=== PATIENT | female | born 1985 | race Caucasian/White ===

== ENCOUNTER 2022-02-09 06:07 | Emergency (ER) | payer OTHER, SELFPAY ==
[2022-02-09 06:08] VITALS: BP 153/93; PULSE 110; RESP 18; TEMP 36.6; O2SAT 100
--- NOTE | 2022-02-09 06:56 | ED_ITS ---
HPI - Dental/Oral General Chief complaint: Dental/Oral Stated complaint: dental, facial swelling Time Seen by Provider: 02/09/22 06:09 History of Present Illness HPI Narrative: 36-year-old female presented to the emergency department for evaluation of worsening dental pain. Patient has had follow-up with a dentist and had been treated with amoxicillin and then Augmentin. Related Data Allergies Allergy/AdvReac Type Severity Reaction Status Date / Time lurasidone [From Latuda] Allergy Seizure Verified 02/09/22 06:19 methocarbamol [From Robaxin] Allergy Seizure Verified 02/09/22 06:19 pseudoephedrine Allergy Seizure Verified 02/09/22 06:19 venlafaxine [From Effexor] Allergy Seizure Verified 02/09/22 06:19 Exam Narrative: APPEARANCE: Well appearing, no pain, no distress, well-nourished. HEAD: normocephalic, atraumatic. Mild left lower facial swelling, no tenderness to palpation EYES: PERRLA/EOMI, conjunctivae clear. NOSE: Normal no drainage EARS:TMS clear with good light reflex. THROAT: Pharynx clear, no exudate. Dental: Dental carry with no dental abscess amenable to drainage NECK: Supple. No adenopathy, no masses. RESPIRATORY: Airway patent, respirations nonlabored. Clear to auscultation bilaterally, no rales, rhonchi, wheezing. SKIN: Warm, dry. Normal Color PSYCHIATRIC: Normal affect/mood. Course Course Emergency Course: Patient was started on clindamycin. Patient was recommended to stop taking the Augmentin and switch to clindamycin. Patient will also have close follow-up with her dentist as scheduled. Vital Signs Vital signs: Vital Signs Temperature 97.8 F 02/09/22 06:08 Pulse Rate 110 H 02/09/22 06:08 Respiratory Rate 18 02/09/22 06:08 Blood Pressure 153/93 H 02/09/22 06:08 Pulse Oximetry 100 02/09/22 06:08 Oxygen Delivery Room Air 02/09/22 06:08 Temperature 97.8 F 02/09/22 06:08 Pulse Rate 110 H 02/09/22 06:08 Respiratory Rate 18 02/09/22 06:08 Blood Pressure 153/93 H 02/09/22 06:08 Pulse Oximetry 100 02/09/22 06:08 Oxygen Delivery Room Air 02/09/22 06:08 Discharge Plan Discharge Clinical Impression: Toothache Patient Disposition: Home, Self-Care Condition: Stable Instructions: Antibiotic Form, Toothache (ED) Additional Instructions: Stop taking the Augmentin and start taking the clindamycin. Prescriptions: New clindamycin HCl 150 mg capsule 150 mg PO Q6H 10 Days Qty: 40 0RF Follow-up/Referrals: PHYSICIAN,[employer]ATIONSH[employer] MANAGER [Primary Care Provider] -
--- NOTE | 2022-02-09 07:12 | PC.NURSE ---
Pt refused medication dose prior to discharge.
== END 2022-02-09 07:13 | disposition home or self-care (01) ==
PROVIDERS: Emergency Provider Emergency Medicine
DX: K08.89 Other specified disorders of teeth and supporting structures (principal); G40.909 Epilepsy, unspecified, not intractable, without status epilepticus
CPT/HCPCS: 99283

== ENCOUNTER 2022-02-21 11:51 | Emergency (ER) | payer OTHER, SELFPAY ==
--- NOTE | ~2022-02-21 | XR_ITS ---
EXAMINATION: XR shoulder LT min 2V DATE: 02/21/2022 12:55 INDICATION: Left shoulder injury. TECHNIQUE: 4 views of left shoulder were obtained. COMPARISON: None. FINDINGS: Bone alignment is normal. No fracture. Joint spaces are well maintained. IMPRESSION: 1. Normal left shoulder. Reviewed, dictated and finalized at location A. IMPRESSION: 1. Normal left shoulder.
--- NOTE | ~2022-02-21 | XR_ITS ---
EXAMINATION: XR hand LT min 3V DATE: 02/21/2022 12:56 INDICATION: Left hand pain. Injury. TECHNIQUE: 3 views of left hand were obtained. COMPARISON: None. FINDINGS: Bone alignment is normal. No fracture. Joint spaces are normal. IMPRESSION: 1. Normal left hand. Reviewed, dictated and finalized at location A. IMPRESSION: 1. Normal left hand.
[2022-02-21 11:52] VITALS: BP 142/86; PULSE 113; RESP 18; TEMP 36.4; O2SAT 100
[2022-02-21] MEDS: KETOROLAC (*BKC) 60 MG/2 ML VIAL IM (12:56)
--- NOTE | 2022-02-21 13:18 | ED.GENADULT ---
HPI - General Adult General Chief complaint: Extremity Injury, Upper Stated complaint: left hand pain Time Seen by Provider: 02/21/22 11:58 History of Present Illness HPI narrative: Patient is a 36-year-old female who presents to the ER with left shoulder pain and left hand pain. Hand pain is located at the fourth MCP where she has some slight swelling. Patient reports she was raising her kids or [place] when she tried to cut through a [place] and fell onto the left side. She did not initially have any real pain. After she worked at her job through the evening she developed increased pain in her shoulder and hand. She has difficulty lifting past 90 degrees at the shoulder with abduction and forward flexion. External/internal rotation are retained. She reports that she has a deep burning sensation over the left shoulder but no actual numbness or tingling. Improves with rest. Worse with movement. Did not strike her head or lose consciousness. Related Data Allergies Allergy/AdvReac Type Severity Reaction Status Date / Time lurasidone [From Latuda] Allergy Seizure Verified 02/09/22 06:19 methocarbamol [From Robaxin] Allergy Seizure Verified 02/09/22 06:19 pseudoephedrine Allergy Seizure Verified 02/09/22 06:19 venlafaxine [From Effexor] Allergy Seizure Verified 02/09/22 06:19 Review of Systems Constitutional: Constitutional: Denies chills and Denies fever(s) Musculoskeletal: Musculoskeletal: Denies back pain, Reports myalgias, Reports arthralgias, Reports joint swelling and Denies muscle cramps Neurologic: Denies syncope, Denies focal weakness and Denies numbness Comments: Burning paresthesia of the left lateral shoulder. PMFSH Past Medical History Medical History (Updated 02/21/22 @ 13:25 by Adam Rutledge MD) Seizure disorder Surgical History Surgical History (Updated 02/21/22 @ 13:21 by Adam Rutledge MD) H/O knee surgery History of appendectomy Social History Social History (Updated 02/21/22 @ 13:21 by Adam Rutledge MD) Smoking status: Never smoker Exam Narrative: GENERAL: Well-appearing, well-nourished, and in no acute distress. HEAD: Normocephalic, atraumatic. Neck: Supple, no paraspinal or midline tenderness of the C-spine. CHEST: Clear to auscultation. No respiratory distress. HEART: Regular rate and rhythm. Normal peripheral pulses. Back: No midline tenderness of the T/L-spine. Mild discomfort left trapezius region. No scapular tenderness. No abrasions or bruising noted to the back. EXTREMITIES: Focused exam left upper extremity reveals normal internal/external rotation of the shoulder with pain upon getting to 90 degrees abduction. No bruising or swelling to the shoulder. Left hand with normal range of motion and strength without point tenderness of the third or fourth fourth MCP. SKIN: Warm, dry, no rash. NEURO: Alert and oriented x3. PSYCH: Normal mood and affect. Course Course Emergency Course: Informed patient of results and will treat with anti-inflammatories and muscle relaxers. Patient verbalized understanding and requested a left shoulder sling. Discussed we will provide 1 but recommend she continue to practice range of motion exercises so she does not develop a frozen shoulder patient verbalized understanding. She has a private orthopedic surgeon she sees in [facility]. We will give her the name of our orthopedic surgery physician on-call but discussed that she is more than welcome to follow-up with her doctor. Vital Signs Vital signs: Vital Signs Temperature 97.6 F 02/21/22 11:52 Pulse Rate 113 H 02/21/22 11:52 Respiratory Rate 18 02/21/22 11:52 Blood Pressure 142/86 H 02/21/22 11:52 Pulse Oximetry 100 02/21/22 11:52 Oxygen Delivery Room Air 02/21/22 11:52 Temperature 97.6 F 02/21/22 11:52 Pulse Rate 113 H 02/21/22 11:52 Respiratory Rate 18 02/21/22 11:52 Blood Pressure 142/86 H 02/21/22 11:52 Pulse Oximetry 100
== END 2022-02-21 13:51 | disposition home or self-care (01) ==
PROVIDERS: Emergency Provider Emergency Medicine
DX: S43.402A Unspecified sprain of left shoulder joint, initial encounter (principal); S63.655A Sprain of metacarpophalangeal joint of left ring finger, initial encounter; G40.909 Epilepsy, unspecified, not intractable, without status epilepticus; W18.39XA Other fall on same level, initial encounter
CPT/HCPCS: 73030; 73130; 96372; 99284; A4565; J1885

== ENCOUNTER 2022-02-24 11:20 | Emergency (ER) | payer BC, MEDICAID, SELFPAY ==
[2022-02-24 11:28] VITALS: BP 140/99; PULSE 116; RESP 18; TEMP 36.7; O2SAT 97
--- NOTE | 2022-02-24 11:31 | ED.SKABFB ---
HPI - Skin/Abscess/Foreign Bdy General Chief complaint: Allergic Reaction Stated complaint: Rash Time Seen by Provider: 02/24/22 11:37 Source: patient and RN notes reviewed Mode of arrival: ambulatory Limitations: no limitations History of Present Illness HPI narrative: 36-year-old female presents to the [facility] with a rash to bilateral arms after falling into a [place] and in [place] on Sunday, 5 days ago. Has been using calamine. States that her throat is itchy. No swelling noted. Able to swallow with no drooling. No swelling of the lip tongue or throat noted. Related Data Home Medications Medication Instructions Recorded Confirmed bupropion HCl 300 mg 24 hr tablet, mg PO 02/24/22 extended release oxcarbazepine 300 mg tablet 300 mg PO BID 02/24/22 02/24/22 (Trileptal) Allergies Allergy/AdvReac Type Severity Reaction Status Date / Time lurasidone [From Latuda] Allergy Seizure Verified 02/09/22 06:19 methocarbamol [From Robaxin] Allergy Seizure Verified 02/09/22 06:19 pseudoephedrine Allergy Seizure Verified 02/09/22 06:19 venlafaxine [From Effexor] Allergy Seizure Verified 02/09/22 06:19 Review of Systems Review of Systems: All systems reviewed & are unremarkable except as noted in HPI and below Constitutional: Constitutional: Reports no additional constitutional complaints, Denies chills and Denies fever(s) Eyes: Eyes: Reports no additional eye complaints ENT: Reports system reviewed and no additional complaints, except as documented Cardiovascular: Cardiovascular: Reports no additional cardiovascular complaints Respiratory: Respiratory: Reports no additional respiratory complaints Gastrointestinal: Gastrointestinal: Reports no additional gastrointestinal complaints Musculoskeletal: Musculoskeletal: Reports no additional musculoskeletal complaints Integumentary/Breasts: Skin/Breast: Reports as per HPI and Reports rash Neurologic: Reports system reviewed and no additional complaints, except as documented Psychiatric: Psychiatric: Reports no additional psychiatric complaints Allergic/Immunologic: Allergic/Immunologic: Reports no additional allergic/immunologic complaints PMFSH Past Medical History Medical History Seizure disorder Surgical History Surgical History H/O knee surgery History of appendectomy Social History Social History Smoking status: Never smoker Comments At the time of my signature, I reviewed and agree with the nursing past medical, surgical, social, and family history. There is no relevant family history pertinent to the patient complaint. Exam Const: General: healthy appearing, no acute distress and alert Nutritional Appearance: well nourished Orientation/consciousness: patient oriented x3 Limitations: no limitations HENMT: Head: normal to inspection Ears: external ears normal General nose exam: Normal external nose present Mouth: Yes Normal oral and palatal mucosa present, Yes lip normal and Yes moist mucous membranes Throat: posterior oropharynx normal and uvula midline Eyes: General: appearance normal, both eyes and all related structures Pupils: Equal, round and reactive pupils present Neck: Neck: normal visual inspection, no lymphadenopathy and no meningeal signs Chest: Chest palpation & inspection: normal inspection of the chest Resp: Effort & Inspection: normal respiratory effort and no use of accessory muscles Auscultation: clear to auscultation bilaterally, no crackles, no rales, no rhonchi and no wheezes Cardio: Rate: regular rate Rhythm: regular rhythm Back/Spine/Pelvis: Cervical Spine: normal cervical lordosis Thoracic/Lumbar Spine: thoracic and lumbar spine normal to inspection Skin: General skin exam: normal color Wounds: no wounds Other: Bilateral rash to arms
[2022-02-24 11:32] VITALS: BP 140/99; PULSE 116; RESP 18; TEMP 36.7; O2SAT 97
== END 2022-02-24 11:59 | disposition home or self-care (01) ==
PROVIDERS: Emergency Provider Nurse Practitioner
DX: L25.5 Unspecified contact dermatitis due to plants, except food (principal); G40.909 Epilepsy, unspecified, not intractable, without status epilepticus
CPT/HCPCS: 99213; G0463

== ENCOUNTER 2022-04-12 13:30 | Emergency (ER) | payer OTHER, BC, MEDICAID, SELFPAY ==
--- NOTE | ~2022-04-12 | CT_ITS ---
EXAMINATION: CT abd pelvis lumbar w con DATE: 04/12/2022 14:41 INDICATION: Nausea, vomiting and back pain TECHNIQUE: Computed tomography (CT) of the abdomen, pelvis and lumbar spine was performed with 100 mL Omnipaque-350 intravenous contrast. The dose-length product was 974.63 mGy-cm. COMPARISON: None FINDINGS: Lung bases are clear. Heart size is normal. No pericardial or pleural effusion. Liver, gallbladder, s pleen, pancreas, bilateral adrenal glands and kidneys are normal. Bladder is normal. Bilateral Essure type fallopian tube occlusion devices in expected position along the left and right broad ligament. Uterus and bilateral adnexa are otherwise unremarkable. Appendix is not visualized and there are surg ical clips along the anterior margin of the right psoas muscle and suture line at the tip the cecum l ikely related to prior appendectomy. Colon is largely decompressed. No dilated bowel to suggest obstr uction. No abscess or free intraperitoneal gas or fluid. No pathologically enlarged abdominal or pelv ic lymphadenopathy. Small fat-containing umbilical hernia. Moderate disc height loss at L4-L5 with pr ominent Schmorl's nodes along the inferior endplate of L4. Associated disc bulge resulting in mild to moderate central canal stenosis and mild bilateral neural foraminal stenosis at L4-L5. Otherwise min imal lumbar and mild thoracic spondylosis. IMPRESSION: 1. No acute intra-abdominal/pelvic process. 2. Small fat-containing umbilical hernia. 3. Bilateral Essure type tubal ligation devices in expected positions. 4. Moderate spondylosis at L4-L5. Reviewed, dictated and finalized at location B.
[2022-04-12 13:31] VITALS: BP 187/117; PULSE 123; RESP 18; TEMP 36.5; O2SAT 98
[2022-04-12 13:45] LABS: Basophils Absolute Auto 0.1 K/mm3 (0.0-0.1); Basophils Percent Auto 0.5 % (0.2-1.2); Eosinophils Percent Auto 0.1 % (0-4.4); Hematocrit 41.9 % (37.0-47.0); Hemoglobin 13.9 g/dL (12.0-15.0); Immature Granulocyte Absolute 0.04 K/mm3 (0.00-0.031); Immature Granulocyte Percent A 0.4 % (0-0.5); Lymphocytes Absolute Auto 3.46 K/mm3 (0.9-3.2); Lymphocytes Percent Auto 37.3 % (18.3-44.2); Mean Corpuscular HGB Conc 33.2 g/dl (32-36); Mean Corpuscular Hemoglobin 31.2 pg (26-34); Mean Corpuscular Volume 93.9 fl (80-100); Mean Platelet Volume 9.2 fl (7.4-10.4); Monocytes Absolute Auto 0.6 K/mm3 (0.1-0.6); Monocytes Percent Auto 5.9 % (2.6-8.5); Neutrophils Absolute Auto 5.2 K/mm3 (1.3-6.7); Neutrophils Percent Auto 55.8 % (45.5-73.1); Platelet Count Result 425 k/mm3 (150-375); Red Blood Count 4.46 M/mm3 (4.2-5.4); Red Cell Distribution Width 13.6 % (11.5-14.5); White Blood Count 9.3 K/mm3 (4.5-10.0)
[2022-04-12 13:55] LABS: Alanine Aminotransferase 27 U/L (6-35); Albumin Level 4.8 g/dL (3.5-5.1); Alkaline Phosphatase 73 U/L (38-126); Anion Gap 16 mmol/L (8-16); Aspartate Amino Transferase 29 U/L (14-36); Bilirubin,Total 0.4 mg/dL (0.2-1.3); Blood Urea Nitrogen 8 mg/dL (7-17); Calcium 9.2 mg/dL (8.4-10.2); Carbon Dioxide 18 mmol/L (22-30); Chloride 106 mmol/L (98-107); Estimated CRCL calculation 96 ml/min; Estimated Glomerular Filt Rate > 60; Glucose 184 mg/dL (65-110); Lipase 107 U/L (23-300); Potassium 3.2 mmol/L (3.4-5.0); Sodium 140 mmol/L (137-145)
[2022-04-12 14:04] VITALS: BP 148/98; PULSE 117; RESP 22; O2SAT 96
[2022-04-12 14:13] LABS: Add Urine Microscopic? NO; Appearance Urine Clear (Clear); Bilirubin Urine Negative (Negative); Blood Urine Negative (Negative); Color Urine Straw (Yellow); Glucose Urine UA Negative (Negative); Ketones Urine Negative (Negative); Leukocyte Esterase Ur Negative LEU/UL (Negative); Nitrate Urine Negative (Negative); Protein Urine Negative (Negative); Specific Grav Ur 1.005 (1.001-1.035); Urobilinogen Urine Negative mg/dL (<2.0)
--- NOTE | 2022-04-12 14:22 | ED.GENADULT ---
HPI - General Adult General Chief complaint: Abdominal Pain Stated complaint: back pain Time Seen by Provider: 04/12/22 14:00 Source: patient and RN notes reviewed Mode of arrival: ambulatory Limitations: no limitations History of Present Illness HPI narrative: THis is a 36 year old female who presents for evaluation of possible urinary tract infection. Patient states approximately 6 week ago she developed urinary incontinence. She is having increased frequency and urgency. She states she will sit on toilet to urinate and after she goes, she will stand up and having urinary incontinence after urinating. She denies saddle anesthesia, leg weakness, numbness or tingling. She denies dysuria, abdominal pain or fever. She just states she always feels pressure like she needs to urinate. She was placed on antibiotics 6 weeks ago for UTI. She has develop nausea, vomiting for 2 days. She also reports some mild mid low back today. Related Data Home Medications Medication Instructions Recorded Confirmed bupropion HCl 300 mg 24 hr tablet, mg PO 02/24/22 extended release oxcarbazepine 300 mg tablet 300 mg PO BID 02/24/22 02/24/22 (Trileptal) Allergies Allergy/AdvReac Type Severity Reaction Status Date / Time lurasidone [From Latuda] Allergy Seizure Verified 04/12/22 13:34 methocarbamol [From Robaxin] Allergy Seizure Verified 04/12/22 13:34 pseudoephedrine Allergy Seizure Verified 04/12/22 13:34 venlafaxine [From Effexor] Allergy Seizure Verified 04/12/22 13:34 Review of Systems Review of Systems: All systems reviewed & are unremarkable except as noted in HPI and below Constitutional: Constitutional: Denies chills, Reports fatigue and Denies fever(s) Cardiovascular: Cardiovascular: Denies chest pain and Denies slow heart rate Respiratory: Respiratory: Denies chest congestion, Denies cough and Denies dyspnea Gastrointestinal: Gastrointestinal: Denies abdominal pain, Denies diarrhea, Reports nausea and Reports vomiting Genitourinary: Genitourinary: Denies abnormal vaginal bleeding, Reports nocturia, Denies pelvic pain, Denies flank pain and Reports urinary incontinence Musculoskeletal: Musculoskeletal: Reports back pain PMFSH Past Medical History Medical History Seizure disorder Surgical History Surgical History H/O knee surgery History of appendectomy Social History Social History Smoking status: Never smoker Exam Const: General: no acute distress and alert Nutritional Appearance: well nourished Orientation/consciousness: patient oriented x3 Limitations: no limitations HENMT: Head: normal to inspection Eyes: EOM: EOMs intact bilaterally Neck: Neck: normal visual inspection Chest: Chest palpation & inspection: normal inspection of the chest Resp: Effort & Inspection: normal respiratory effort Auscultation: clear to auscultation bilaterally Cardio: Rate: regular rate Rhythm: regular rhythm Heart sounds: no murmurs GI: GI Palp: Yes Soft to palpation, No Tenderness to palpation present (GI), No Guarding due to palpation present (GI) and No Rigid due to palpation Auscultation: normal bowel sounds Back/Spine/Pelvis: Back: no CVA tenderness Thoracic/Lumbar Spine: thoracic and lumbar spine normal to inspection and thoraco-lumbar ROM normal Skin: General skin exam: normal color Rashes: no rashes Wounds: no wounds Neuro: General: patient oriented x3, moves all extremities and CN's II-XI intact bilaterally Cranial nerves: Yes Nystagmus not present Extrem: General: normal to inspection Psych: Mental Status: mental status grossly normal Affect: normal affect Attitude: cooperative Course Reevaluation(s) Reevaluation #1: Patient states she still feels nauseated but she has to leave. CT did not show any in her abdo
[2022-04-12] MEDS: ONDANSETRON INJ 4 MG/2 ML VIAL IV PUSH (14:33)
[2022-04-12] MEDS: SODIUM CHLORIDE 0.9% IV 1,000 ML 999 ML IV CONT ×2 (14:33→15:12)
--- NOTE | 2022-04-12 14:33 | PC.NURSE ---
Pt to CT scan via w/c at this time.
[2022-04-12] MEDS: KETOROLAC 30 MG/ML VIAL (*BKC) IV PUSH (15:12)
[2022-04-12 15:23] VITALS: PULSE 102; RESP 14; O2SAT 100
[2022-04-12 15:47] LABS: Influenza A QL RT-PCR Negative (Negative); Influenza B QL RT-PCR Negative (Negative); SARS-CoV-2 RNA PCR Negative
== END 2022-04-12 16:21 | disposition home or self-care (01) ==
PROVIDERS: Emergency Provider General Practice
DX: R32 Unspecified urinary incontinence (principal); R11.2 Nausea with vomiting, unspecified; Z20.822 Contact with and (suspected) exposure to COVID-19; G40.909 Epilepsy, unspecified, not intractable, without status epilepticus; K42.9 Umbilical hernia without obstruction or gangrene; M47.816 Spondylosis without myelopathy or radiculopathy, lumbar region
CPT/HCPCS: 36415; 72132; 74177; 80053; 81003; 81025; 83690; 85025; 87502; 96361; 96374; 96375; 99284; C9803; J1885; J2405; J7030; Q9967; U0003; U0005